=== PATIENT | male | born 1965 | race Caucasian/White ===

== ENCOUNTER 2025-02-06 16:53 | Emergency (ER) | payer MEDICAID ==
[2025-02-06] MEDS ORDERED: Diphtheria,Pertussis(Acell),Tetanus Vaccine 0.5 ML Syringe IM ONE (17:29)
[2025-02-06] MEDS: Diphtheria,Pertussis(Acell),Tetanus Vaccine 0.5 ML Syringe ONE (17:43)
== END 2025-02-06 17:44 | disposition home or self-care (01) ==
LOC: VM.ED 16:53
DX: S20.419A Abrasion of unspecified back wall of thorax, initial encounter (principal); X50.9XXA Other and unspecified overexertion or strenuous movements or postures, initial encounter
CPT/HCPCS: 90715; 99282; 99283